=== PATIENT | female | born 1990 | race Caucasian/White ===

== ENCOUNTER → 2024-10-04 08:09 | Outpatient (CLI) | payer OTHER, SELFPAY ==
--- NOTE | 2024-10-04 | DI.MRI.S_ITS ---
PROCEDURE: MR HIP LT WO CON INDICATIONS: LEFT HIP PAIN-LABRAL TEAR VS JOEL TECHNIQUE: Noncontrast coronal T1 spin echo and STIR through the bony pelvis. Coronal and axial T2 fast spin echo with fat saturation, sagittal T1 spin echo, and oblique axial T2 fast spin echo with fat saturation through the hip. COMPARISON: None. FINDINGS: Image quality: Excellent. Bones and joints: The marrow signal of the visualized lower lumbar spine, and the sacrum are unremarkable. The right and the left sacroiliac joints are unremarkable. The right and the left hip are well aligned. No acute fracture or dislocation of either hip. No significant degenerative changes of either hip. Tendons and ligaments: The left iliopsoas, adductor tendons are unremarkable. Low-grade tear of the left hamstring tendon. The left gluteal minimus and the left gluteal medius tendon are unremarkable. There is soft tissue edema about the proximal iliotibial band, about the iliac tubercle of the anterior iliac crest, likely representing proximal iliotibial band syndrome. No tear of the proximal iliotibial band. No associated marrow edema of the anterior iliac crest. However, somewhat limited evaluation given this is only seen on coronal large field of view image. Labrum and cartilage: Posterior labral tear. No paralabral cyst. Cartilage of the left hip is well maintained. Soft tissues: The uterus is present. IMPRESSION: 1. 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 No tear of the left proximal iliotibial band. 2. Low-grade tear of the left hamstring tendon. 3. Posterior labral tear of the left hip. No paralabral cyst. Dictated by: Kerrie Reyna M.D. on 10/04/2024 at 14:27 Approved by: Kerrie Reyna M.D. on 10/04/2024 at 14:42
== END ==
DX: S73.192A Other sprain of left hip, initial encounter (principal); S76.812A Strain of other specified muscles, fascia and tendons at thigh level, left thigh, initial encounter; M25.552 Pain in left hip
CPT/HCPCS: 73721